=== PATIENT | male | born 1990 ===

== ENCOUNTER 2017-01-29 17:05 | Emergency (ER) | payer MEDICAID ==
[2017-01-29 17:18] VITALS: BP 142/71; PULSE 98; RESP 18; TEMP 97.3; O2SAT 99
--- NOTE | 2017-01-29 17:35 | ED PDOC ---
HPI: Back Time Seen by Provider: 01/29/17 17:31 Chief Complaint (Nursing): Back Pain Chief Complaint (Provider): back pain History Per: Patient History/Exam Limitations: no limitations Additional Complaint(s): 26yoM i ED for eval of lower back pain sustained yesterday while bowling-states that he has hx of lower back spasm/pain, but controlled with motrin and heat compress. pt states he has trouble standing and walking. denies radiation of pain to LE, abd pain, vomiting, fever chills, dysuria, hematuria, saddle anesthesia, urinary/BM incontinence. Past Medical History Reviewed: Historical Data, Nursing Documentation, Vital Signs Vital Signs: Last Vital Signs Temp 97.3 F L 01/29/17 17:16 Pulse 98 H 01/29/17 17:16 Resp 18 01/29/17 17:16 BP 142/71 01/29/17 17:16 Pulse Ox 99 01/29/17 17:16 - Medical History PMH: No Chronic Diseases - Family History Family History: States: No Known Family Hx - Home Medications Home Medications: Ambulatory Orders Medication Instructions Recorded Cyclobenzaprine [Cyclobenzaprine 10 mg PO BID #14 tab 01/29/17 HCl] - Allergies Allergies/Adverse Reactions: Allergies Allergy/AdvReac Type Severity Reaction Status Date / Time seafood Allergy SWELLING Uncoded 01/29/17 17:15 Review of Systems ROS Statement: Except As Marked, All Systems Reviewed And Found Negative Constitutional: Negative for: Fever, Chills Musculoskeletal: Positive for: Back Pain Physical Exam - Reviewed Nursing Documentation Reviewed: Yes Vital Signs Reviewed: Yes - Physical Exam Appears: Positive for: Well, Non-toxic, No Acute Distress Head Exam: Positive for: ATRAUMATIC, NORMAL INSPECTION, NORMOCEPHALIC Skin: Positive for: Normal Color, Warm, DRY Cardiovascular/Chest: Positive for: Regular Rate, Rhythm Respiratory: Positive for: CNT, Normal Breath Sounds Gastrointestinal/Abdominal: Positive for: Normal Exam, Bowel Sounds, Soft. Negative for: Tenderness Back: Positive for: Normal Inspection, Muscle Spasm (noted to lower left side. no midline tendernes. nuerovasc intact, good strength neg. straight leg raise. ) . Negative for: L CVA Tenderness, R CVA Tenderness, Vertebral Tenderness Extremity: Positive for: Normal ROM Neurologic/Psych: Positive for: Alert, Oriented - ECG O2 Sat by Pulse Oximetry: 99 Medical Decision Making Medical Decision Making: dx: muscle spasm tx: in ED given torodol IM 30mg plan: f.u with pmd, d/c on Rx for flexril and advised to take OTC motrin. pt w/ stable VS. Disposition - Clinical Impression Clinical Impression: Back pain - Patient ED Disposition Is Patient to be Admitted: No Counseled Patient/Family Regarding: Diagnosis, Need For Followup, Rx Given - Disposition Disposition: Routine/Home Disposition Time: 17:37 Condition: STABLE Prescriptions: Cyclobenzaprine [Cyclobenzaprine HCl] 10 mg PO BID #14 tab Instructions: Muscle Spasm (ED), Lumbar Disc Herniation (ED) Forms: [facility] ED School/Work Excuse
== END 2017-01-29 17:56 | disposition home or self-care (01) ==
LOC: H.ER 17:05
DX: M54.9 Dorsalgia, unspecified (principal)

== ENCOUNTER 2018-12-30 14:59 | Emergency (ER) | payer OTHER, MEDICAID ==
[2018-12-30 15:04] VITALS: BP 122/84; PULSE 97; RESP 18; TEMP 97.9; O2SAT 99
[2018-12-30] MEDS ORDERED: Lidocaine 5% Patch TD STA (15:10)
[2018-12-30] MEDS ORDERED: Lidocaine 5% Patch TD ONE (15:16)
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
[2018-12-30 16:12] LABS: SQUAMOUS EPITHIAL 2 /hpf (0-5); URINE BILIRUBIN NEGATIVE (NEGATIVE); URINE BLOOD NEGATIVE (NEGATIVE); URINE CLARITY CLEAR (Clear); URINE COLOR YELLOW (YELLOW); URINE GLUCOSE (UA) NEG (NEGATIVE); URINE LEUKOCYTE ESTERASE NEG Leu/uL (Negative); URINE PROTEIN NEGATIVE (NEGATIVE); URINE UROBILINOGEN 0.2-1.0 mg/dL (0.2-1.0)
--- NOTE | 2018-12-30 17:06 | RAD ---
Date of service: 12/30/2018 PROCEDURE: Radiographs of the Lumbar Spine. HISTORY: pain COMPARISON: No prior. FINDINGS: BONES: Normal alignment. No listhesis. No fracture. DISC SPACES: Unremarkable. OTHER FINDINGS: None. IMPRESSION: Unremarkable radiographs of the lumbar spine.
== END 2018-12-30 16:49 | disposition home or self-care (01) ==
LOC: H.ER 14:59
DX: M54.5 Low back pain (principal); V43.52XA Car driver injured in collision with other type car in traffic accident, initial encounter; Y92.410 Unspecified street and highway as the place of occurrence of the external cause
CPT/HCPCS: 72100; 81003; 96372; 99283; J1885

== ENCOUNTER 2019-02-08 15:41 | Emergency (ER) | payer OTHER, MEDICAID ==
[2019-02-08 15:49] VITALS: RESP 16
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
[2019-02-08 19:51] VITALS: BP 122/78; PULSE 82; TEMP 98.2
[2019-02-08 22:31] VITALS: O2SAT 97
== END 2019-02-08 19:49 | disposition home or self-care (01) ==
LOC: H.ER 15:41
DX: S39.012A Strain of muscle, fascia and tendon of lower back, initial encounter (principal); V43.52XA Car driver injured in collision with other type car in traffic accident, initial encounter; Y92.410 Unspecified street and highway as the place of occurrence of the external cause
CPT/HCPCS: 96372; 99282; J1885